=== PATIENT | female | born 1990 | race Caucasian/White ===

== ENCOUNTER 2017-06-04 14:09 | Emergency (ER) | payer SELFPAY ==
[~2017-06-04] VITALS: Ht 175.3 cm; Wt 78.6 kg
[2017-06-04 14:29] VITALS: BP 114/70; PULSE 60; RESP 15; O2SAT 100
--- NOTE | 2017-06-04 15:22 | ED.REPORT ---
HPI-Dental/Mouth Prob Date of Service Jun 04, 2017 ED Provider: Ward Betancourt MD Jaci is an otherwise healthy 26-year-old female who presents to the emergency department complaining of dental pain. States pain began in her left lower jaw approximately 2 days ago. Reports a history of dental issues. She does not have a dentist, is in town working with the [employer]. Denies fever, chills, feeling ill, abdominal pain, vomiting, difficulty breathing or swallowing. Nursing Notes Stated Complaint: TOOTHACHE Chief Complaint: Dental Allergies: Coded Allergies: No Known Allergies (Unverified , 06/04/17) Scheduled Amoxicillin (Amoxicillin) 500 Mg Tablet 500 MG PO BID Scheduled PRN Hydrocodone-Acetaminophen 5-325 mg (Hydrocodone-Acetaminophen 5-325 mg) 1 Each Tablet 1-2 TABLET PO QID PRN PRN For Pain General Time Seen by MD: 15:21 Chief Complaint Tooth pain Past Medical History Past Medical History Denies Review of Systems Review of Systems Note: Negative unless stated otherwise in history of present illness Physical Exam General: Well appearing, well developed, well nourished, moderate distress. Patient is tearful. Head: Atraumatic, normocephalic. No mastoid tenderness. Eyes: Conjunctiva are injected. No discharge. PERRL. Vision grossly intact. Ears: Hearing grossly intact. Nose: Symmetrical, nares patent without discharge. No frontal or maxillary sinus tenderness. Mouth/pharynx: Left lower jaw notable for 3 severely decayed molars, tender to percussion with a tongue blade. No redness, swelling, fluctuance noted. Poor dentition, mucus membranes moist. Tonsils 2+ and symmetrical, uvula midline. Pharynx noninjected, no cobblestoning or discharge. Voice clear. Neck: No tenderness or lymphadenopathy. Trachea midline. Respiratory: No respiratory distress, no increased work of breathing. Speaks in complete sentences. Skin: Warm and dry. Neurological: Grossly nonfocal. Psychological: alert and oriented. Speech appropriate, linear and logical. Behavior appropriate. Initial Vital Signs Vital Signs (First) Date Time Temp Pulse Resp B/P Pulse Ox O2 Delivery O2 Flow Rate FiO2 06/04/17 14:29 36.5 60 15 114/70 100 Room Air Normal Re-Eval/Medical Decision Med Decision/Clinical Course Otherwise of a 26-year-old presenting with chief complaint of toothache. Onset 2 days ago. History of reassuring and systemic illness. Physical examination reveals obvious dental caries, no abscess noted. Vital signs noted. I am reassured against ligament angina, peritonsillar abscess, retropharyngeal abscess, systemic infection. Teeth are tender to percussion with a tongue blade. Discharged with amoxicillin, advised regarding [id number] analgesic provide a small amount of hydrocodone supplement with precautions. Advised engaging dental services. Provide emergent return precautions. Patient verbalizes understanding of and content to the plan. Discharge & Departure Primary Impression: Toothache Additional Impression: Pain, dental Disposition: Home Discharge Condition All VS Reviewed: Yes Condition: Stable Patient Instructions: Dental Caries (ED) Additional Instructions: Evaluation in the emergency department for dental pain includes interview, physical examination both of which suggest that you could have a infection developing in your teeth. I write a prescription for amoxicillin 500 mg retaken twice a day for the next 7 days. This should have a significant effect on your pain. The pain is best treated with 600 mg of ibuprofen (Advil, Motrin) every 6 hours , or 1000 mg of acetaminophen (Tylenol) every 6 hours. These drugs can be taken at the same time for more severe pain. I have written a prescription for a small amount of hydrocodone/acetaminophen 5/ 325 mg which can be SUBSTITUTED for the Tylenol to treat more severe pain. Do not take them together, and do not drink alcohol or operate a vehicle within 4 hours of taking this medication. It is very important that you find a dentist for definitive treatment of your decaying teeth. Return to emergency department for new or worsening symptoms including increasing pain, fever, feeling ill, difficulty swallowing or breathing. Referrals: NOPCP (PCP) [facility] EDSupervising Provider for APC: Ward Betancourt MD Attending Statement Attending attestation: I saw this patient in conjunction with Abisai Robert PA-C. I agree with the workup, evaluation, treatment and disposition. Ward Garcia MD, MD Jun 04, 2017 15:22 Abisai Robert PA-C Jun 04, 2017 15:57
[2017-06-04] MEDS ORDERED: HYDROcodone-APAP 5-325 mg Tablet PO ONE (15:50)
[2017-06-04] MEDS ORDERED: HYDR-4003 PO (15:58)
[2017-06-04] MEDS ORDERED: AMOX500T2 PO (16:02)
== END 2017-06-04 16:07 | disposition home or self-care (01) ==
LOC: SED 14:09
DX: K08.89 Other specified disorders of teeth and supporting structures (principal)